=== PATIENT | female | born 1955 | race Caucasian/White ===

== ENCOUNTER 2018-06-21 12:27 | Emergency (ER) | payer BC ==
[~2018-06-21] VITALS: Ht 157.5 cm; Wt 92.1 kg
[2018-06-21] MEDS ORDERED: IV NORMAL SALINE 1,000ML 1,000 ML IV ONE (12:45)
[2018-06-21] MEDS ORDERED: MECLIZINE 12.5 MG TABLET. PO PRN (12:45)
--- NOTE | 2018-06-21 12:45 | EKG ---
[address] [address] Test Date: 2018-06-21 Test Time: 12:41:00 Pat Name: ALEX LOCKE Department: Room: Gender: F [employer] Supervisor: : [id number] Requested By: FARZANEH TOBIN Order Number: [id number] Reading MD: Woodrwo Epperson Measurements Intervals [place] Rate: 90 P: 32 CO: 156 QRS: -14 QRSD: 88 T: 1 QT: 376 QTc: 464 Interpretive Statements SINUS RHYTHM LEFTWARD AXIS Electronically Signed On 06-24-2018 10:48:26 LITIGATION EXAMINER by Woodrow Epperson
--- NOTE | 2018-06-21 12:55 | PHYS DOC ---
Past History Past Medical History: Diabetes, GERD, Hypothyroid Past Surgical History: No Surgical History Alcohol Use: None Drug Use: None Adult General Chief Complaint Chief Complaint: DIZZY/LIGHT HEADED HPI HPI 62-year-old female presenting the emergency department today with episode of lightheadedness and dizziness that occurred about noon to 12:30 today. She reports getting ready to eat when she felt dizzy and lightheaded. She had 4 episodes of nonbilious nonbloody emesis. She felt like she was going to blackout. Paramedics were called. She arrives today by EMS. Paramedics gave the patient 4 mg of Zofran which improved her symptoms. Medical history: Diabetes mellitus GERD and hypothyroidism Surgical history: Right foot, D&C Social history denies smoking drinking or IV drug use. She is and lives with her . Review of systems is negative for chest pain abdominal pain shortness of breath. She denies fevers or chills. All other review of systems is negative unless otherwise noted in history of present illness. ED course: 62-year-old female presenting to the emergency department today with an episode of dizziness and lightheadedness. On arrival vitals are unremarkable. She is afebrile and well-appearing. Exam is unremarkable. Normal neurologic exam. IV fluids and meclizine given here in the emergency department. EKG obtained and reviewed by myself shows sinus rhythm with a regular rate. ST segments congruent. Not suggestive of ACS. Intervals within normal limits. No evidence of Brugada, WPW, QT is within normal limits, no signs of hypertrophic obstructive cardiomyopathy. CT abdomen pelvis is unremarkable for acute pathology. CT head is negative. On reexamination the patient is feeling much better. White blood cell count is elevated at 20,000. Repeat physical exam shows no skin and soft tissue infections. She denies neck stiffness and has no nuchal rigidity on examination. She does have nausea and vomiting which could have caused white blood cell count to be elevated. I offered the patient admission for close monitoring which the patient does not desire. Shared decision making utilized. Repeat abdominal exam is soft and nontender. We will have the patient follow up with her doctor tomorrow for repeat examination. Strict return precautions given. The patient was then discharged home in stable condition to follow up with their primary care physician over the next 1-2 days. They were to return if their symptoms worsened or if they were concerned for any reason. They were also instructed to return to the emergency department if they were unable to get the recommended and appropriate follow-up. [id number] discharge instructions and return precautions were given. Patient's questions were answered to their satisfaction. Patient is comfortable with plan. Review of Systems Review of Systems SEE ABOVE. Current Medications Current Medications Current Medications Medications (Trade) Dose Ordered Sig/Arelis Start Time Stop Time Status Last Admin Dose Admin Meclizine HCl (Antivert) 12.5 mg PRN Q6HRS PRN 06/21/18 12:45 UNV Sodium Chloride 1,000 ml @ 1,000 mls/hr 1X ONCE 06/21/18 12:45 06/21/18 13:44 UNV Physical Exam Physical Exam SEE ABOVE Constitutional: Well developed, well nourished, no acute distress, non-toxic appearance. HENT: Normocephalic, atraumatic, bilateral external ears normal, oropharynx moist, no oral exudates, nose normal. [] Eyes: PERRLA, EOMI, conjunctiva normal, no discharge. Neck: Normal range of motion, no tenderness, supple, no stridor. [] Cardiovascular:Heart rate regular rhythm, no murmur Lungs & Thorax: Bilateral breath sounds clear to auscultation [] Abdomen: Bowel sounds normal, soft, minimal tenderness without any localization. , no masses, no pulsatile masses. [] Skin: Warm, dry, no erythema, no rash. Back: No tenderness, no CVA tenderness. [] Extremities: No tenderness, no cyanosis, no clubbing, ROM intact, no edema. [] Neurologic: Mental status: Awake oriented and alert x3 Cranial nerves: Extraocular movements intact, eyebrows karissa bilaterally, smile symmetric, uvula elevation nl, shoulder shrug intact bilaterally, tongue protrusion normal DTRs: 2+ Sensation: equal and normal in all extremities Strength: 5/5 in upper and lower extremities bilaterally Psychologic: Affect normal, judgement normal, mood normal. [] Current Patient Data Vital Signs Vital Signs Date Time Temp Pulse Resp B/P (MAP) Pulse Ox O2 Delivery O2 Flow Rate FiO2 06/21/18 12:35 97.9 93 18 95 Room Air EKG EKG [] Radiology/Procedures Radiology/Procedures [] Course & Med Decision Making Course & Med Decision Making Pertinent Labs and Imaging studies reviewed. (See chart for details) [] Dragon Disclaimer Dragon Disclaimer This electronic medical record was generated, in whole or in part, using a voice recognition dictation system. Departure Departure: Impression: Primary Impression: Lightheaded Additional Impressions: Dehydration Nausea & vomiting Diarrhea Disposition: 01 HOME, SELF-CARE Condition: STABLE Referrals: PCP,NO (PCP) Patient Instructions: Diarrhea, [id number], Dizziness, [id number], Nausea and Vomiting Additional Instructions: Thank you for allowing us to participate in your care today. Return to the emergency department you have any new or worsening symptoms, or if you are concerned for any reason. Return to emergency department if you have any new or concerning symptoms including but not limited to fever, chills, nausea, vomiting, intractable pain, any new rashes, chest pain, shortness of air , uncontrolled bleeding, difficulty breathing, and/or vision loss. Follow up with your primary care physician within 1-2 days. Call your Primary Doctor tomorrow and inform them of your visit today. If you do not have a primary care provider we are happy to provide you with a list of our primary care providers contact information. This condition should be evaluated by your primary care physician and any recommended consulting services for continued management within 2 days after discharge. If at any time, you are having difficulty getting into your primary care doctor or a specialist, return to the emergency department. Scripts Ondansetron Hcl (ZOFRAN) 4 Mg Tablet 1 TAB PO PRN Q6HRS PRN for NAUSEA, #6 TAB Prov: FARZANEH TOBIN MD 06/21/18 Problem Qualifiers FARZANEH TOBIN MD Jun 21, 2018 12:54
[2018-06-21 13:17] LABS: BASO % 0 % (0-3); EOS # 0.1 x10^3/uL (0.0-0.7); EOS % 0 % (0-3); HEMATOCRIT 45.7 % (36.0-47.0); HEMOGLOBIN 15.1 g/dL (12.0-15.5); LYMPH # 1.6 x10^3/uL (1.0-4.8); LYMPH % 8 % (24-48); MEAN CORPUSCULAR HEMOGLOBIN 29 pg (25-35); MEAN CORPUSCULAR HGB CONC 33 g/dL (31-37); MEAN CORPUSCULAR VOLUME 86 fL (79-100); MONO # 1.2 x10^3/uL (0.0-1.1); MONO % 6 % (0-9); NEUT # 17.1 x10^3uL (1.8-7.7); NEUT % 85 % (31-73); PLATELET COUNT 318 x10^3/uL (140-400); RED BLOOD COUNT 5.31 x10^6/uL (3.50-5.40); RED CELL DISTRIBUTION WIDTH 14.9 % (11.5-14.5); WHITE BLOOD COUNT 20.1 x10^3/uL (4.0-11.0)
[2018-06-21 13:27] LABS: BACTERIA,URINE FEW /HPF (0-FEW); BILIRUBIN,URINE NEG (NEG); CLARITY,URINE HAZY; COLOR,URINE YELLOW; GLUCOSE,URINE NEG (NEG); GRANULAR CASTS,URINE FEW /HPF; HYALINE CASTS, URINE FEW /HPF; NITRITE,URINE NEG (NEG); RBC,URINE 0 /HPF (0-2); SQUAMOUS EPITHELIAL CELL,UR FEW /LPF; UROBILINOGEN,URINE 0.2 mg/dL (0.2 mg/dL)
[2018-06-21 13:30] LABS: ALBUMIN 4.6 g/dL (3.4-5.0); ALBUMIN/GLOBULIN RATIO 1.3 (1.0-1.7); CALCIUM 9.7 mg/dL (8.5-10.1); CREATININE 0.9 mg/dL (0.6-1.0); GFR 63.9; POTASSIUM 3.7 mmol/L (3.5-5.1); TOTAL BILIRUBIN 0.3 mg/dL (0.2-1.0); TOTAL PROTEIN 8.2 g/dL (6.4-8.2)
--- NOTE | 2018-06-21 13:45 | RAD ---
Chest, PA and Lateral: Technique: PA and lateral views of the chest were obtained. History: Near syncope. Comparison: None. Findings: The heart and pulmonary vasculature appear within normal limits. The lungs are clear. The pleural margins are clear. Mild degenerative changes thoracic spine. Impression: No acute chest process is seen. Electronically signed by: Tony Hurley MD (06/21/2018 1:42 PM) [place] [id number]
[2018-06-21 13:58] LABS: % ATYL 2 % (0-0); % BANDS 6 % (0-9); % LYMPHS 14 % (24-48); % MONOS 3 % (0-10); % SEGS 75 % (35-66)
[2018-06-21 13:59] LABS: PLT ESTIMATE ADEQUATE (ADEQUATE); TOXIC GRANULATION PRESENT; TOXIC VACUOLATION PRESENT
[2018-06-21] MEDS ORDERED: IOHEXOL 300 MG/ML 75 ML VIAL. IV ONE (14:00)
--- NOTE | 2018-06-21 14:32 | RAD ---
CT HEAD WO CONTRAST Indication: NEAR SYNCOPE Exposure: One or more of the following individualized dose reduction techniques were utilized for this examination: 1. Automated exposure control 2. Adjustment of the mA and/or kV according to patient size 3. Use of iterative reconstruction technique. Comparison: None are available. Contrast: None Findings: Posterior fossa unremarkable. No acute intracranial hemorrhage, mass effect, midline shift or abnormal extra-axial fluid collection. Fernández-white matter distinction is intact. Orbits appear grossly unremarkable. Partially included sinuses are clear. No evidence of acute skull abnormality. IMPRESSION: No acute intracranial hemorrhage or mass effect. Electronically signed by: Ovidio Lynne MD (06/21/2018 2:29 PM) [id number]
--- NOTE | 2018-06-21 14:51 | RAD ---
CT ABD PELV W/ IV CONTRST ONLY Indication: RLQ PAIN, VOMITING, NEAR SYNCOPE. 75MLS OMNI 300 IV CONTRAST Exposure: One or more of the following individualized dose reduction techniques were utilized for this examination: 1. Automated exposure control 2. Adjustment of the mA and/or kV according to patient size 3. Use of iterative reconstruction technique. Comparison: None are available. Contrast: Intravenous contrast was given. No oral contrast per request. FINDINGS: Lung bases are essentially clear. Liver is enlarged, 22.5 cm cephalocaudal. Mildly hypodense suggesting steatosis. Spleen unremarkable. Pancreas unremarkable. Left adrenal morphology is somewhat thickened, but no evidence of adrenal mass. Right kidney unremarkable. Left kidney is pelvic in location. 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 Mild hydronephrosis of both upper and lower pole moieties. Left ureter does not appear grossly dilated. No calcified gallstone. Aorta nonaneurysmal. Mildly prominent left upper mesenteric lymph nodes, likely reactive in nature, measuring up to 7 mm in short axis. No bowel obstruction. No bowel obstruction. No evidence of acute colitis. Appendix appears within normal limits. No ascites. No evidence of pneumoperitoneum. No inflammatory type stranding in the peritoneal fat. Left ovary appears to measure at least 5.3 cm diameter. Low-density within the left ovary may represent cysts or cystic lesions. Urinary bladder unremarkable. Calcifications within the uterus likely fibroids. Degenerative spondylosis of the spine, greatest at L5-S1. Mild anterior subluxation of L5 on S1 with bilateral L5 spondylolysis. Degenerative changes at both hips. Lucency within the L1 vertebral body, likely a benign hemangioma. IMPRESSION: 1. 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 The ectopic left kidney also demonstrates a duplicated collecting system with mild hydronephrosis. 2. Hepatomegaly with steatosis. 3. Left ovary appears mildly enlarged, with low-density lesions, considering the patient's age. Recommend pelvic ultrasound for further evaluation. 4. 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 Electronically signed by: Ovidio Lynne MD (06/21/2018 2:48 PM) [id number]
[2018-06-21] MEDS ORDERED: ONDA4TAB7 PO (15:22)
[2018-06-21 15:25] VITALS: BP 144/73
== END 2018-06-21 16:00 | disposition home or self-care (01) ==
LOC: ER 12:27
DX: E86.0 Dehydration (principal); R42 Dizziness and giddiness; E11.9 Type 2 diabetes mellitus without complications; K21.9 Gastro-esophageal reflux disease without esophagitis; I10 Essential (primary) hypertension; E03.9 Hypothyroidism, unspecified
CPT/HCPCS: 36415; 70450; 71046; 74177; 80053; 81001; 84484; 85007; 85025; 87086; 93005; 96360; 99284; J8597; Q9967; J7030